=== PATIENT | female | born 1985 | race Caucasian/White ===

== ENCOUNTER 2021-12-08 20:59 | Emergency (ER) | payer SELFPAY ==
[~2021-12-08] VITALS: Ht 170.2 cm; Wt 104.5 kg
[2021-12-08 21:28] VITALS: BP 152/101
== END 2021-12-08 23:08 | disposition left against medical advice (07) ==
LOC: EMS 21:04
DX: R42 Dizziness and giddiness (principal); Z53.21 Procedure and treatment not carried out due to patient leaving prior to being seen by health care provider